=== PATIENT | female | born 1985 ===

== ENCOUNTER 2017-10-04 14:00 | Inpatient (IN) | payer OTHER ==
[~2017-10-04] VITALS: Ht 162.6 cm; Wt 70.3 kg
== END 2017-10-14 12:40 | disposition home or self-care (01) | DRG 621 ==
LOC: SURH 10-13 06:30 → O/R 10-13 06:46 → SURH 10-13 13:30 → SURG 10-13 23:20
PROVIDERS: Specialist
PROC: 0HRV0JZ Replacement of Bilateral Breast with Synthetic Substitute, Open Approach (ICD-10-PCS; 2017-10-13)
PROC: 0J080ZZ Alteration of Abdomen Subcutaneous Tissue and Fascia, Open Approach (ICD-10-PCS; principal; 2017-10-13 06:30)
PROC: 0HBV0ZZ Excision of Bilateral Breast, Open Approach (ICD-10-PCS; 2017-10-13 06:30)
DX: E65 Localized adiposity (principal); N65.1 Disproportion of reconstructed breast